=== PATIENT | female | born 1985 | race Caucasian/White ===

== ENCOUNTER 2022-06-12 22:55 | Inpatient (IN) ==
[2022-06-12] MEDS ORDERED: SODIUM CHLORIDE 0.9% 1,000 ML IV STA (23:20)
[2022-06-12 23:27] LABS: Basophils # 0.1 10*3/uL (0.0-0.2); Basophils % 0.8 % (0.0-0.8); Eosinophils # 0.2 10*3/uL (0.0-0.87); Eosinophils % 2.4 % (0.00-10.9); Hematocrit 39.3 VOL% (35.7-47.0); Hemoglobin 13.4 GM/DL (12.0-16.0); Immature Granulocytes % 0.3 %; Immature Granulocytes Absolute 0.02 #; Lymphocytes # 1.9 10*3/uL (1.4-4.0); Lymphocytes % 30.8 % (21.3-54.2); Mean Corpuscular HGB Conc 34.1 GM/DL (32-36); Mean Corpuscular Volume 89.9 FL (87-102); Mean Platelet Volume 8.9 FL (9.6-12.0); Monocytes # 0.5 10*3/uL (0.11-0.8); Monocytes % 7.4 % (1.7-12.7); Neutrophils % 58.3 % (38.7-73.9); Platelet Count 254 T/CUMM (130-400); Red Blood Count 4.37 MC/CUMM (3.8-5.5); Red Cell Distribution Width 12.4 % (9.3-17.3); White Blood Count 6.2 T/CUMM (4-12)
[2022-06-12 23:33] LABS: Bacteria,Urine Occasional /HPF (Few); Mucus,Urine Occasional /LPF (Occasional); RBC,Urine 1 /HPF (0-4); Squamous Epithelial Cell,Urine Occasional /HPF (0-10)
[2022-06-12 23:34] LABS: Bilirubin,Urine Negative (Negative); Blood, Urine Negative (Negative); Glucose,Urine (UA) Negative (Negative); Ketones,Urine Negative (Negative); Nitrite,Urine Negative (Negative); Protein,Urine Negative (Negative); Urine Appearance Clear (Clear); Urine Color Yellow (Yellow); Urine Specific Gravity 1.015 (1.001-1.035); Urine Urobilinogen 0.2 eU/dL (<2.0)
[2022-06-12 23:48] LABS: Albumin 4.3 G/DL (3.4-5.0); Bilirubin,Total 1.7 MG/DL (0.20-1.00); Calcium 9.5 MG/DL (8.5-10.1); Osmolality,Calculated 275.7 MOS/KG (273-304); Potassium 3.6 MMOL/L (3.5-5.1); Total Protein 7.6 G/DL (6.4-8.2)
[2022-06-13] MEDS ORDERED: SODIUM CHLORIDE 0.9% 1,000 ML IV STA (00:35)
[2022-06-13 01:41] LABS: Hepatitis B Core IgM Quant 0.07 Index; Hepatitis B Surface Ag Result Non-Reactive (NonReactive); Hepatitis C Virus Ab Quant < 0.02 Index; Hepatitis C Virus Ab Result Non-Reactive (NonReactive)
[2022-06-13] MEDS ORDERED: MORPHINE 2 MG/1 ML SYRINGE IV PRN (03:02)
[2022-06-13] MEDS ORDERED: ONDANSETRON 4 MG/2 ML VIAL IV PRN (03:02)
[2022-06-13] MEDS: LACTATED RINGERS 1,000 ML IV SCH ×3 (04:11→22:24)
[2022-06-13 05:33] LABS: Basophils % 1.2 % (0.0-0.8); Eosinophils # 0.1 10*3/uL (0.0-0.87); Eosinophils % 3.3 % (0.00-10.9); Hematocrit 35.6 VOL% (35.7-47.0); Hemoglobin 11.9 GM/DL (12.0-16.0); Immature Granulocytes % 0.3 %; Immature Granulocytes Absolute 0.01 #; Lymphocytes # 1.8 10*3/uL (1.4-4.0); Lymphocytes % 52.1 % (21.3-54.2); Mean Corpuscular HGB Conc 33.4 GM/DL (32-36); Mean Corpuscular Volume 90.6 FL (87-102); Mean Platelet Volume 9.3 FL (9.6-12.0); Monocytes # 0.3 10*3/uL (0.11-0.8); Monocytes % 10.1 % (1.7-12.7); Platelet Count 224 T/CUMM (130-400); Red Blood Count 3.93 MC/CUMM (3.8-5.5); Red Cell Distribution Width 12.4 % (9.3-17.3); White Blood Count 3.4 T/CUMM (4-12)
[2022-06-13 06:02] LABS: Albumin 3.6 G/DL (3.4-5.0); Bilirubin,Total 1.9 MG/DL (0.20-1.00); Calcium 8.7 MG/DL (8.5-10.1); Potassium 4.1 MMOL/L (3.5-5.1); Total Protein 6.4 G/DL (6.4-8.2)
[2022-06-13 06:49] LABS: Eosinophils 3 % (0-10); Lymphocytes 52 % (20-55); Nucleated Red Blood Cells 2 /100 WBC (0-5); Platelet Estimate Normal; Total Cells Counted 100
[2022-06-13] MEDS: PANTOPRAZOLE 40 MG TABLET PO SCH (08:11)
[2022-06-13] MEDS: PIPERACILLIN/TAZOBACTAM 3,375 MG in SODIUM CHLORIDE 0.9% 100 ML IV SCH ×2 (11:18→17:42)
[2022-06-14] MEDS: PIPERACILLIN/TAZOBACTAM 3,375 MG in SODIUM CHLORIDE 0.9% 100 ML IV SCH ×3 (02:44→22:59)
[2022-06-14] MEDS: LACTATED RINGERS 1,000 ML IV SCH ×2 (02:48→16:11)
[2022-06-14 05:49] LABS: Basophils % 0.9 % (0.0-0.8); Eosinophils # 0.2 10*3/uL (0.0-0.87); Eosinophils % 5.4 % (0.00-10.9); Hematocrit 36.5 VOL% (35.7-47.0); Hemoglobin 12.2 GM/DL (12.0-16.0); Immature Granulocytes % 0.3 %; Immature Granulocytes Absolute 0.01 #; Lymphocytes # 1.5 10*3/uL (1.4-4.0); Lymphocytes % 43.8 % (21.3-54.2); Mean Corpuscular HGB Conc 33.4 GM/DL (32-36); Mean Corpuscular Volume 92.2 FL (87-102); Monocytes # 0.3 10*3/uL (0.11-0.8); Monocytes % 8.5 % (1.7-12.7); Neutrophils % 41.1 % (38.7-73.9); Platelet Count 200 T/CUMM (130-400); Red Blood Count 3.96 MC/CUMM (3.8-5.5); Red Cell Distribution Width 12.7 % (9.3-17.3); White Blood Count 3.5 T/CUMM (4-12)
[2022-06-14 06:12] LABS: Albumin 3.5 G/DL (3.4-5.0); Bilirubin,Total 0.8 MG/DL (0.20-1.00); Potassium 4.1 MMOL/L (3.5-5.1); Total Protein 6.6 G/DL (6.4-8.2)
[2022-06-14] MEDS ORDERED: traMADol 50 MG TABLET PO PRN (08:50)
[2022-06-14] MEDS: PANTOPRAZOLE 40 MG TABLET PO SCH (09:03)
[2022-06-15 05:41] LABS: Basophils # 0.1 10*3/uL (0.0-0.2); Basophils % 1.3 % (0.0-0.8); Eosinophils # 0.2 10*3/uL (0.0-0.87); Eosinophils % 4.6 % (0.00-10.9); Hematocrit 35.9 VOL% (35.7-47.0); Hemoglobin 11.9 GM/DL (12.0-16.0); Immature Granulocytes % 0.5 %; Immature Granulocytes Absolute 0.02 #; Lymphocytes # 1.9 10*3/uL (1.4-4.0); Lymphocytes % 47.2 % (21.3-54.2); Mean Corpuscular HGB Conc 33.1 GM/DL (32-36); Mean Corpuscular Volume 92.1 FL (87-102); Mean Platelet Volume 9.4 FL (9.6-12.0); Monocytes # 0.4 10*3/uL (0.11-0.8); Monocytes % 10.2 % (1.7-12.7); Neutrophils % 36.2 % (38.7-73.9); Platelet Count 219 T/CUMM (130-400); Red Cell Distribution Width 12.5 % (9.3-17.3); White Blood Count 3.9 T/CUMM (4-12)
[2022-06-15 06:02] LABS: Albumin 3.7 G/DL (3.4-5.0); Bilirubin,Total 0.7 MG/DL (0.20-1.00); Calcium 8.9 MG/DL (8.5-10.1); Osmolality,Calculated 280.1 MOS/KG (273-304); Potassium 3.9 MMOL/L (3.5-5.1); Total Protein 6.4 G/DL (6.4-8.2)
[2022-06-15] MEDS: PIPERACILLIN/TAZOBACTAM 3,375 MG in SODIUM CHLORIDE 0.9% 100 ML IV SCH ×2 (06:05→15:12)
[2022-06-15 06:07] LABS: Eosinophils 6 % (0-10); Lymphocytes 46 % (20-55); Platelet Estimate Adequate; Total Cells Counted 100
[2022-06-15] MEDS ORDERED: INDOCYANINE GREEN 25 MG VIAL IV ONE (07:03)
[2022-06-15] MEDS: LACTATED RINGERS 1,000 ML IV SCH ×4 (07:40→12:30)
[2022-06-15] MEDS: PANTOPRAZOLE 40 MG TABLET PO SCH (08:53)
[2022-06-15] MEDS ORDERED: BUPIVACAINE MPF 0.25% 10 ML VIAL ONE (09:39)
[2022-06-15] MEDS ORDERED: TISSUE ADHESIVE 1 EACH APPLICATOR TOP ONE (09:39)
[2022-06-15] MEDS ORDERED: LIDOCAINE 1%/EPI INJ 20 ML VIAL ONE (09:39)
[2022-06-15] MEDS ORDERED: MIDAZOLAM 2 MG/2 ML VIAL ONE (09:41)
[2022-06-15] MEDS ORDERED: ONDANSETRON 4 MG/2 ML VIAL ONE (09:41)
[2022-06-15] MEDS ORDERED: propofoL 200 MG/20 ML VIAL IV ONE (09:41)
[2022-06-15] MEDS ORDERED: LIDOCAINE 2% 5 ML VIAL ONE (09:41)
[2022-06-15] MEDS ORDERED: DEXAMETHASONE 4 MG/1 ML VIAL ONE ×2 (09:41→10:33)
[2022-06-15] MEDS ORDERED: fentaNYL 100 MCG/2 ML VIAL ONE (09:41)
[2022-06-15] MEDS ORDERED: GLYCOPYRROLATE 0.4 MG/2 ML VIAL ONE ×2 (10:31→10:47)
[2022-06-15] MEDS ORDERED: SEVOFLURANE 1 UNIT/15 MINUTE INH ONE ×2 (10:31→11:01)
[2022-06-15] MEDS ORDERED: PHENYLEPHRINE 1 MG/10 ML SYRINGE IV ONE (10:33)
[2022-06-15] MEDS ORDERED: NEOSTIGMINE 10 MG/10 ML VIAL ONE (10:47)
[2022-06-15] MEDS ORDERED: ACETAMINOPHEN INJ 1,000 MG/100 ML VIAL IV ONE (11:03)
[2022-06-15] MEDS ORDERED: KETOROLAC 30 MG/1 ML VIAL ONE (11:03)
[2022-06-15 15:08] VITALS: BP 122/70
[2022-06-16 14:45] LABS: Antinuclear Ab, S 0.4 U
== END 2022-06-15 15:18 | disposition home or self-care (01) | DRG 419 ==
LOC: N.ED 22:55 → N.EDINP 22:55 → N.2W 06-13 03:24 → N.3E 06-14 16:50
PROVIDERS: ADMIT Internal Medicine; ATTEND Internal Medicine